=== PATIENT | female | born 1975 | race Caucasian/White ===

== ENCOUNTER → 2023-02-24 | Outpatient (CLI) | payer BC, SELFPAY ==
[2023-02-24 13:05] LABS: Absolute Lymphocyte Count 1.22 X10^3/uL (0.83-4.51); Absolute Neutrophil Count 3.5 X10^3/uL (2.0-7.7); Basophil# 0.02 X10^3/uL; Basophil% 0.4 % (0-1); Eosinophil# 0.05 X10^3/uL; Hematocrit 44.1 % (37-47); Lymphocyte # 1.22 X10^3/ul (0.83-4.51); Lymphocyte % 24.4 % (19-41); Mean Corp Hgb Conc 31.7 g/dL (32-36); Mean Corpuscular Hgb 28.8 pg (27.0-32.0); Mean Corpuscular Volume 90.7 fL (81-99); Mean Platelet Vol. 11.4 fl (6.2-12.0); Monocyte# 0.25 X10^3/uL; NRBC Flagged by Analyzer 0 % (0-5); Neutrophil # 3.46 X10^3/uL (2.7-7.7); Platelet Count 234 K/mm3 (150-450); RBC Distribution Width CV 12.6 % (11.6-14.6); RBC Distribution Width SD 41.8 fl (35.1-43.9); Red Blood Count 4.86 M/mm3 (4.2-5.4)
[2023-02-24 13:18] LABS: Vitamin B12 610 pg/mL (211-911); Vitamin D,25 Hydroxy 50.9 ng/mL
[2023-02-24 13:53] LABS: Ferritin 101 ng/mL (8-252); T4 Free Direct 1.04 ng/dL (0.76-1.46); Thyroid Stim Hormone (TSH) 1.94 uIU/mL (0.358-3.74)
[2023-02-26 14:09] LABS: Anti-Nuclear Antibody Test Negative (.); Vitamin D 1,25-Dihydroxy 86.7 pg/mL (24.8-81.5)
[2023-03-07 01:07] LABS: DHEA Sulfate 86.9 ug/dL (41.2-243.7); Testosterone, % Free 0.57 % (0.50-2.80); Testosterone, Free 0.02 ng/dL (0.10-0.85); Testosterone, Total 4 ng/dL (4-50); Zinc, Plasma or Serum 111 ug/dL (44-115)
== END | disposition home or self-care (01) ==
PROVIDERS: PCP Internal Medicine; Referring Provider Physician Assistant; Visit Provider Physician Assistant
DX: L64.8 Other androgenic alopecia (principal); L20.89 Other atopic dermatitis
CPT/HCPCS: 36415; 82306; 82607; 82627; 82652; 82728; 82746; 84402; 84403; 84439; 84443; 84630; 85025; 86038; 82626

== ENCOUNTER 2023-09-22 03:43 | Inpatient (IN) | payer BC, SELFPAY ==
[2023-09-22] VITALS (14 sets, daily range): BP systolic 103–129; BP diastolic 66–90; PULSE 80–122; RESP 14–18; TEMP 36.3–36.9; O2SAT 95–99; BMI 32.5; BMI 32.3
--- NOTE | 2023-09-22 04:23 | CT_ITS ---
We are attempting to reach an attending provider to discuss findings. An addendum with communication details will be sent when the communication is complete. EXAM: CT ABDOMEN AND PELVIS WITHOUT INTRAVENOUS CONTRAST CLINICAL INDICATION: Kidney Stone TECHNIQUE: Helically acquired images were obtained of the abdomen and pelvis without intravenous contrast. This CT exam was performed using one or more of the following dose reduction techniques: automated exposure control, adjustment of the mA and/or kV according to patient size, and/or use of iterative reconstruction technique. RADIATION DOSE: CTDIvol = 12.22 mGy, DLP = 641.03 mGy-cm COMPARISON: No relevant prior studies available. FINDINGS: LOWER THORAX: Unremarkable. Lung bases are clear. No cardiomegaly. No significant pericardial effusion. ABDOMEN: LIVER: Unremarkable. Homogeneous. GALLBLADDER AND BILE DUCTS: Unremarkable. No calcified gallstones. No gallbladder distention or wall edema. No intra- or extrahepatic biliary ductal dilation. PANCREAS: Unremarkable. No focal cystic mass. SPLEEN: Unremarkable. Normal size without focal cystic or solid mass. ADRENALS: Unremarkable. No nodules. KIDNEYS AND URETERS: Unremarkable. Normal renal size and position. No hydronephrosis. STOMACH AND BOWEL: Unremarkable. No stomach or bowel distention. No focal inflammatory change. PELVIS: APPENDIX: The appendix is dilated up to 1.4 cm. There is an appendicolith in the mid appendix. Moderate inflammatory changes around the mid to distal appendix along the right pelvic sidewall. There are a few tiny gas bubbles above the appendix adjacent to the bowel that are probably within the bowel. BLADDER: Unremarkable. REPRODUCTIVE: Unremarkable as visualized. No mass. ABDOMEN and PELVIS: INTRAPERITONEAL SPACE: Moderate amount of free fluid in the low pelvis. No free air. BONES/JOINTS: Unremarkable. No suspicious lytic or blastic abnormality. SOFT TISSUES: Unremarkable. No discrete abdominal or pelvic wall hernia. VASCULATURE: Unremarkable. Abdominal aorta is non-dilated. LYMPH NODES: Unremarkable. No enlarged lymph nodes. CT/Abdomen/Pelvis without Cont IMPRESSION: 1. Appendicitis with moderate inflammatory changes. Appendicolith in the mid appendix. Perforated appendicitis not excluded. 2. Moderate amount of free fluid in the low pelvis. Electronically Signed: Cleveland Frey MD at 6:19 EDT ,
--- NOTE | 2023-09-22 04:24 | ED.VIS.GI ---
HPI HPI - GI History of Present Illness Chief Complaint: Abd Pain Informant: patient Narrative Narrative: 47-year-old healthy female presenting about 4 AM because of diffuse abdominal pain across periumbilical area that started 2 days ago, occasional nausea and vomiting, and then tonight it seemed to suddenly move from the right mid abdomen to the left lower quadrant sharp and severe. It is not quite as severe now but still at least moderate, and mostly in the left lower quadrant/pelvis. No radiation into the back at this time. Has been somewhat colicky. No urinary symptoms until she got here to the ER to provide a sample in which it looks bloody and burned some. She takes no anticoagulants. No history of any abdominal surgeries. [facility] Medical History IBS (irritable bowel syndrome) Migraine Epilepsy Home Medications ?Medication ?Instructions ?Recorded ?Last Taken ?Type Control 1 tab PO DAILY 02/10/16 Unknown History escitalopram oxalate 10 mg tablet 10 mg PO DAILY 02/10/16 Unknown History hyoscyamine sulfate 0.375 mg 0.375 mg PO BID PRN Not Specified 02/10/16 Unknown History tablet,extended release,12 hr topiramate 50 mg tablet 50 mg PO BID 02/10/16 Unknown History Allergy/AdvReac Type Severity Reaction Status Date / Time No Known Allergies Allergy Verified 09/22/23 03:48 Social History Smoking Status: Never smoker ROS ROS ED Constitutional Constitutional ED: Denies chills or fever(s) Eyes Eyes: Denies change in vision or diplopia ENT ENT ED: Denies rhinorrhea or sore throat Cardiovascular Cardiovascular: Denies chest pain or palpitations Respiratory/Chest Respiratory/Chest: Denies cough or dyspnea Gastrointestinal Gastrointestinal: Reports abdominal pain, nausea and vomiting; Denies diarrhea Genitourinary Genitourinary ED: Reports hematuria; Denies dysuria Musculoskeletal Musculoskeletal: Denies back pain or neck pain Integumentary Denies abscess or rash Neurologic Neurologic: Denies headache(s), paresthesias or weakness Psychiatric Psychiatric: Denies anxiety or suicidal thoughts EXAM Physical Exam Const Vital Signs: 09/22/23 03:44 09/22/23 05:44 Temperature 97.4 F L 97.8 F Temperature Source Temporal Temporal Pulse Rate 122 H 83 Respiratory Rate 18 14 Blood Pressure 123/90 H 117/86 H Blood Pressure Mean 101 96 Pulse Ox 99 98 Oxygen Delivery Method Room Air Room Air Positive well nourished and well developed General Appearance ED: well developed and NAD HEENT Reports moist mucous membranes normocephalic and atraumatic Eyes PERRL and EOMs intact bilaterally Neck full ROM and supple Resp normal respiratory effort and clear to auscultation bilaterally Cardio regular rate, regular rhythm and no murmurs GI non-distended GI Narrative: Tender left lower quadrant, otherwise benign abdomen Auscultation: normoactive bowel sounds Palpation: soft Back/Spine no CVA tenderness General Back: other FROM Extremity normal to inspection General Extremety ED: Negative for edema, pulses abnormal or tenderness General Extremity: Negative for edema or pulses abnormal Neuro oriented x3, CN's II-XII intact bilaterally and no sensory deficits noted Sensorium / Orientation: awake and alert Motor Exam: strength 5/5 throughout Skin no rashes or lesions noted and no wounds MDM MDM MDM Narrative Medical decision making narrative: Unusual pain pattern is patient, initially performed labs and urinalysis, urine appears to be red but the urinalysis shows that it is not blood, it looks like infection. I sent that for culture. It had urobilinogen in it, so I sent liver enzymes off, showing a total bilirubin that is slightly elevated at 1.4, with a total that is slightly high at 0.41, and the rest of her liver enzymes are normal. I reviewed the CT images as well as the report which I agree with, it shows inflammation around the right lower quadrant in the bowel/mesentery and radiologist states this appears to be acute appendicitis along with an appendicolith, and rupture is not excluded due to the amount of inflammation. I reexamined her and discussed this with her. She is tender in the left pelvis now, in addition to the right, but she is more tender McBurney's point than she was initially with some involuntary guarding. There is no rebound tenderness or guarding otherwise. Discussed with Dr. Miller with surgery, will see in emergency department. In the meantime Zosyn given, I sent a urine culture, and patient has been n.p.o. except for a small amount of water she drank when she first got to the ER. Lab Data Attestation: I reviewed the patient's lab results. Labs: Laboratory Results - last 24 hr 09/22/23 09/22/23 04:05 04:12 WBC 7.3 RBC 5.01 Hgb 14.7 Hct 44.6 MCV 89.0 MCH 29.3 MCHC 33.0 RDW Std Deviation 42.5 RDW Coeff of [place] 13.0 Plt Count 193 MPV 10.5 Immature Gran % (Auto) 0.100 Neut % (Auto) 82.8 H Lymph % (Auto) 8.3 L [place] % (Auto) 7.0 Eos % (Auto) 1.1 Baso % (Auto) 0.7 Absolute Neuts (auto) 6.1 Absolute Lymphs (auto) 0.61 L Nucleated RBC % 0 Differential Comment SCANNED Sodium 133 L Potassium 3.9 Chloride 104 Carbon Dioxide 18.0 L Anion Gap 11 BUN 20 H Creatinine 1.27 H Estim Creat Clear Calc 58.91 Est GFR (MDRD) Af Amer 57 L Est GFR (MDRD) Non-Af 47 L BUN/Creatinine Ratio 15.7 Glucose 153 H Calcium 9.8 Total Bilirubin 1.40 H Direct Bilirubin 0.41 H AST 7 L ALT 10 L Alkaline Phosphatase 55 Total Protein 7.4 Albumin 3.4 Globulin 4.0 Urine Color Avril Urine Clarity Clear Urine pH 5.0 Ur Specific [place] 1.025 Urine Protein 30 H Urine Glucose (UA) Normal Urine Ketones 15 H Urine Occult Blood 25 H Urine Nitrite Positive H Urine Bilirubin 3 H Urine Urobilinogen 4 H Ur Leukocyte Esterase 100 H Urine RBC 0 SEEN Urine WBC 0-5 SEEN Ur Squamous Epith Cells 0 SEEN Urine Bacteria 3+ Hyaline Casts 10-25 SEEN Urine Mucus 0 SEEN Radiography Diagnostic Testing: Clinical Impression(s) from Imaging Studies Abdomen/Pelvis CT 09/22/23 04:23 IMPRESSION: 1. Appendicitis with moderate inflammatory changes. Appendicolith in the mid appendix. Perforated appendicitis not excluded. 2. Moderate amount of free fluid in the low pelvis. Electronically Signed: Cleveland Frey MD at 6:19 EDT , ADDENDUM: 09/22/23 0628 IMPRESSION: 1. Appendicitis with moderate inflammatory changes. Appendicolith in the mid appendix. Perforated appendicitis not excluded. 2. Moderate amount of free fluid in the low pelvis. N.B. : The above Results were Read Back by Cleveland Frey MD to Wiliam Batres MD, and understanding confirmed on 09/22/2023 06:21:28 (ET). Electronically Signed: Cleveland Frey MD at 6:19 EDT , Management Discussion w/another healthcare provider: [facility] Administrator (nazia Miller) Critical Care Time Critical Care Time: Yes Critical care time (excluding procedures): 30-74 minutes (32 min), Including time spent:, Discussing w/Patient &/or Family/Vehicle Body Builder, Discussing w/Consultants, Arranging Admission or Transfer and Performing Direct Patient Care at Bedside Discharge Plan Dx/Rx/DC Orders Clinical Impression: Acute appendicitis Disposition Disposition: Acute Care Hospital [facility]
[2023-09-22 04:32] LABS: Mucous, Urine 0 SEEN /hpf (<or=2+); Red Blood Cells-Urine 0 SEEN /hpf (0-5); Squamous Epithelial Cells - UA 0 SEEN /hpf (5-10)
[2023-09-22 04:33] LABS: Absolute Lymphocyte Count 0.61 X10^3/uL (0.83-4.51); Absolute Neutrophil Count 6.1 X10^3/uL (2.0-7.7); Basophil# 0.05 X10^3/uL; Basophil% 0.7 % (0-1); Eosinophil# 0.08 X10^3/uL; Eosinophils% 1.1 % (0-5); Hematocrit 44.6 % (37-47); Hemoglobin 14.7 g/dL (12.0-15.0); Lymphocyte # 0.61 X10^3/ul (0.83-4.51); Lymphocyte % 8.3 % (19-41); Mean Corpuscular Hgb 29.3 pg (27.0-32.0); Mean Platelet Vol. 10.5 fl (6.2-12.0); Monocyte# 0.51 X10^3/uL; NRBC Flagged by Analyzer 0 % (0-5); Neutrophil # 6.05 X10^3/uL (2.7-7.7); Neutrophil % 82.8 % (47-70); POSITIVE MORPHOLOGY YES; Platelet Count 193 K/mm3 (150-450); RBC Distribution Width SD 42.5 fl (35.1-43.9); Red Blood Count 5.01 M/mm3 (4.2-5.4); White Blood Count 7.3 K/mm3 (4.4-11.0)
[2023-09-22 04:33] LABS: Color, Urine Amber (Yellow); Glucose, Dipstick Normal (Normal); Ketone-Dipstick 15 mg/dl (Negative); Leukocyte Esterase-Dipstick 100 /ul (Negative); Nitrite-Dipstick Positive (Negative); Occult Blood-Urine 25 /ul (Negative); Protein-Dipstick 30 mg/dl (Negative); Specific Gravity, Urine 1.025 (1.002-1.030); Urine Clarity Clear (Clear); Urine Urobilinogen 4 mg/dl (Normal)
[2023-09-22 04:35] LABS: Urine Bilirubin Dipstick 3 mg/dL (Negative)
[2023-09-22 04:36] LABS: Differential Indicated SCAN CRITERIA MET
[2023-09-22 04:47] LABS: Anion Gap 11 (5-15); BUN 20 mg/dL (7-18); BUN/Creat Ratio 15.7 RATIO (10-20); Calcium,Total 9.8 mg/dL (8.5-10.1); Chloride 104 mmol/L (98-107); Creatinine, Serum 1.27 mg/dL (0.55-1.02); EST Glomerular Filtration Rate 47 mL/min (>60); Est Glom Filt Rate - Afr Amer 57 mL/min (>60); Estimated Creatinine Clearance 58.91 ml/min; Glucose 153 mg/dL (74-106); Potassium 3.9 mmol/L (3.5-5.1); Sodium Level 133 mmol/L (136-145)
[2023-09-22] MEDS: Ondansetron 4 MG/2 ML Vial IV ×2 (04:48→09:09)
[2023-09-22] MEDS: Ketorolac 30 MG/ML Syringe IV (04:48)
[2023-09-22 04:49] LABS: Bacteria 3+ /hpf (None Seen); Hyaline Cast 10-25 SEEN /lpf (0-5); White Blood Cells 0-5 SEEN /hpf (0-5)
[2023-09-22 05:15] LABS: AST(SGOT) 7 U/L (15-37); Alanine Aminotransfer ALT/SGPT 10 U/L (13-56); Albumin, Serum 3.4 g/dL (3.2-5.0); Alkaline Phosphatase 55 U/L (45-117); Bilirubin, Direct 0.41 mg/dL (0.00-0.30); Protein, Total 7.4 g/dL (6.4-8.2)
[2023-09-22 05:21] LABS: Differential Comment SCANNED
--- NOTE | 2023-09-22 07:01 | NURSING ---
OR THEN MED SURG BORTZ ACUTE APPENDICITIS
[2023-09-22] MEDS: Piperacil/Tazobactam 3.375 GM in 0.9% Normal Saline (50mL MB+) 50 ML IV ×3 (07:28→22:33)
--- NOTE | 2023-09-22 07:38 | HP.PCM_ITS ---
HPI - General General Date of Admission: 09/22/23 Chief Complaint: Abdominal pain with nausea and vomiting HPI Narrative PEGGY FINNEGAN, is a 47 F who presents to [facility] with complaints of abdominal discomfort that began across her periumbilical region 2 days ago and migrated to the right lower quadrant (as well as the left pelvis) over the last 1 day. She shares that this pain is associated with nausea and vomiting. It is because of this latter complaint she is unable to stay for further evaluation in the ER when she first presented and found a long wait to be seen. ER workup is notable for CBC without leukocytosis but left shift. CT imaging of the abdomen pelvis was performed without IV contrast because emergency medicine had a high degree of suspicion for nephrolithiasis given red-tinged urine, however, radiology that this is consistent with acute appendicitis showing a dilated (1.4 cm) appendix with appendicolith and free fluid in the pelvis. The latter they suggested could indicate perforated appendicitis. Patient has no prior surgical history. She does confirm a history of epilepsy with her last seizure activity approximately 20 years ago. [facility] Medical History IBS (irritable bowel syndrome) Migraine Epilepsy Home Medications ?Medication ?Instructions ?Recorded ?Last Taken ?Type Control 1 tab PO DAILY 02/10/16 Unknown History escitalopram oxalate 10 mg tablet 10 mg PO DAILY 02/10/16 Unknown History hyoscyamine sulfate 0.375 mg 0.375 mg PO BID PRN Not Specified 02/10/16 Unknown History tablet,extended release,12 hr topiramate 50 mg tablet 50 mg PO BID 02/10/16 Unknown History Allergy/AdvReac Type Severity Reaction Status Date / Time No Known Allergies Allergy Verified 09/22/23 03:48 Social History Smoking Status: Never smoker Vital Signs Vital Signs Vital Signs: 09/22/23 03:44 09/22/23 05:44 09/22/23 07:02 Temperature 97.4 F L 97.8 F 97.3 F L Temperature Source Temporal Temporal Oral Pulse Rate 122 H 83 82 Respiratory Rate 18 14 16 Blood Pressure 123/90 H 117/86 H 118/77 Blood Pressure Mean 101 96 90 Pulse Ox 99 98 97 Oxygen Delivery Method Room Air Room Air Room Air 09/22/23 07:32 Temperature 97.3 F L Temperature Source Pulse Rate 84 Respiratory Rate 16 Blood Pressure 129/74 H Blood Pressure Mean 92 Pulse Ox 98 Oxygen Delivery Method Weight Weight: 195 lb 5.273 oz Body Mass Index (BMI) 32.5 Physical Exam Const alert, oriented x3 and no apparent distress Constitutional Narrative: Anxious Resp normal respiratory effort GI GI Narrative: No scars, obese, no hernias visible, soft, tender to palpation over McBurney's point. Positive Rovsing sign. Positive psoas sign. Negative obturator sign. Results Lab / Micro Data 09/22/23 04:05 09/22/23 04:05 Labs: Laboratory Results - last 24 hr 09/22/23 04:05: WBC 7.3, RBC 5.01, Hgb 14.7, Hct 44.6, MCV 89.0, MCH 29.3, MCHC 33.0, RDW Std Deviation 42.5, RDW Coeff of [place] 13.0, Plt Count 193, MPV 10.5, Immature Gran % (Auto) 0.100, Neut % (Auto) 82.8 H, Lymph % (Auto) 8.3 L, [place] % (Auto) 7.0, Eos % (Auto) 1.1, Baso % (Auto) 0.7, Absolute Neuts (auto) 6.1, A bsolute Lymphs (auto) 0.61 L, Nucleated RBC % 0, Differential Comment SCANNED, S odium 133 L, Potassium 3.9, Chloride 104, Carbon Dioxide 18.0 L, Anion Gap 11, B UN 20 H, Creatinine 1.27 H, Estim Creat Clear Calc 58.91, Est GFR (MDRD) Af Amer 57 L, Est GFR (MDRD) Non-Af 47 L, BUN/Creatinine Ratio 15.7, Glucose 153 H, Calcium 9.8, Total Bilirubin 1.40 H, Direct Bilirubin 0.41 H, AST 7 L, ALT 10 L, Alkaline Phosphatase 55, Total Protein 7.4, Albumin 3.4, Globulin 4.0 09/22/23 04:12: Urine Color Avril, Urine Clarity Clear, Urine pH 5.0, Ur Specific [place] 1.025, Urine Protein 30 H, Urine Glucose (UA) Normal, Urine Ketones 15 H, Urine Occult Blood 25 H, Urine Nitrite Positive H, Urine Bilirubin 3 H, Urine Urobilinogen 4 H, Ur Leukocyte Esterase 100 H, Urine RBC 0 SEEN, Urine WBC 0-5 SEEN, Ur Squamous Epith Cells 0 SEEN, Urine Bacteria 3+, Hyaline Casts 10-25 SEEN, Urine Mucus 0 SEEN Imaging Radiology Impression Abdomen/Pelvis CT 09/22/23 04:23 IMPRESSION: 1. Appendicitis with moderate inflammatory changes. Appendicolith in the mid appendix. Perforated appendicitis not excluded. 2. Moderate amount of free fluid in the low pelvis. Electronically Signed: Cleveland Frey MD at 6:19 EDT , ADDENDUM: 09/22/23 0628 IMPRESSION: 1. Appendicitis with moderate inflammatory changes. Appendicolith in the mid appendix. Perforated appendicitis not excluded. 2. Moderate amount of free fluid in the low pelvis. N.B. : The above Results were Read Back by Cleveland Frey MD to Wiliam Batres MD, and understanding confirmed on 09/22/2023 06:21:28 (ET). Electronically Signed: Cleveland Frey MD at 6:19 EDT , Assessment & Plan Assessment/Plan (1) Acute appendicitis: PLAN: Patient 47-year-old female who presents with signs and symptoms of acute appendicitis. Indeed, I find her exam consistent with this diagnosis and have recommended surgical appendectomy. I did suggest that cystitis may be treated with antibiotics alone in some areas as well, however, I informed her that even if this were a consideration generally?speaking she would not be a candidate on the basis of her appendicoliths. She expressed understanding I went on to describe the details of the procedure. I also was careful to share with her the radiologic suspicion for possible perforated appendicitis. I detailed to her that this management could include drain placement and a prolonged hospital stay secondary to ileus. I shared that ultimately this information would only be known once we were under with an operation. Once again patient and her expressed understanding. In the interim patient to be admitted to a hospital floor for observation and IV antibiotics have been administered by emergency medicine. Cleveland Miller MD General Surgery Endocrine Surgery Pager: [facility] [address] [place] [address] [address] [place] [id number] Office: [phone] Charges/Coding Visit Charges Inpatient E&M: 20277 Init Hosp L2
[2023-09-22] MEDS: HYDROmorphone 0.5 MG/0.5 ML SYRINGE IV (09:10)
[2023-09-22] MEDS: 0.9% Normal Saline (1000mL) 1,000 ML 125 ML IV ×3 (09:10→23:58)
[2023-09-22 12:50] LABS: Internal QC Validated? YES +Cl - CLEAR BKGD; Pregnancy, Urine Negative Negative
--- NOTE | 2023-09-22 13:00 | APP_PTH ---
PATIENT: PEGGY FINNEGAN LOC: [facility] U#:[id number] AGE/SX: 47/F ROOM: [facility] RE09/24/[address]: Dr. Cleveland Miller MD : 1975 BED: 1 DIS: 09/28/2023 SPEC #: [id number] RECD: 09/22/23 18:19 STATUS: ELIZABETH HASSAN #: [id number] KINGS: 09/22/23 13:[address]: Cleveland Miller DEPT: SURGICAL PATHOLOGY RECD BY: Nancy Young ENTERED: 09/23/23 07:08 SP TYPE: APPENDIX OTHR DR: Dr. Li Beard MD Tissues: Appendix, NOS Procedures: Surgery Specimen Level III HEADER OPERATION: Laparoscopic, appendectomy PRE-OP DIAGNOSIS: Acute appendicitis TISSUE SUBMITTED: Appendix MICROSCOPIC DIAGNOSIS Appendix, appendectomy: Acute necrotizing appendicitis. Acute serositis. AM/mr 09/24/2023 MICROSCOPIC DESCRIPTION Slides are reviewed. GROSS DESCRIPTION Received in fixative is one container labeled with the patient's name and designated appendix. The specimen consists of vermiform dark sumner appendix measuring 9.0 cm in length and 1.0 cm in average diameter. No gross perforations are evident. Serial sections reveal a patent lumen with compacted fecal material. No mass lesion is identified. Push Connector Assembler sections are submitted in one cassette. / AM: 09/23/2023 TC:2 CPT: 83330
--- NOTE | 2023-09-22 14:25 | PCM.OPRPT ---
Report of Operation Date of Procedure: 09/22/23 Pre-Operative Diagnosis: Acute appendicitis Post-Operative Diagnosis: Acute complicated/gangrenous appendicitis Surgery/Procedure Performed:: Laparoscopic appendectomy with drain placement Description of Surgical Findings:: ? Gangrenous/necrotic appendix with gross perforation along the midportion ? Diffuse purulent ascites throughout the peritoneum Surgeon: Cleveland Miller track welder: Elham Velazco Type of Anesthesia: General/Supplemental Anesthesiologist: Tk Schroeder Specimen's removed: Appendix Drains: 15 [place] round Nikhil Estimated Blood Loss (mL): 5 Description of Procedure: After appropriate identification in the preoperative holding area, the patient was brought to the operating room and placed supine on the operating room table. Antibiotics had been preoperatively administered. Patient was then induced with general endotracheal anesthetic. The abdomen was prepped and draped in usual sterile fashion. Formal timeout was conducted to confirm both the patient and the procedure. A supraumbilical incision was made and carried down to the level of the fascia which was sharply opened. After opening the peritoneum in like fashion a finger sweep was made to confirm position, and a balloon trocar was placed and pneumoperitoneum was established to 15 mmHg. Patient was positioned in Trendelenburg with the left side down. 2 additional 5 mm trocars were placed in the left lower quadrant and suprapubic positions. Of note, the pelvis was partially sealed off from the abdomen due to adhesions between the small bowel and the anterior abdominal wall on the patient's peritonitis. There was gross evidence of purulent ascites as well. The appendix was visualized with severe inflammation and evidence of necrosis/gangrene starting in the mid body. Additionally, there was evidence of ion perforation, however, the base of the appendix was spared of any significant inflammation. Using blunt laparoscopic dissection, a window was made in the mesoappendix adjacent to the appendiceal base. The mesoappendix was divided with application of a laparoscopic harmonic. Then the base of the appendix was sealed and amputated with the use of an Endo KRISTY stapler. The appendix was placed in an Endo Catch bag. The staple line was inspected for hemostasis and slight oozing was identified so a titanium clip was placed across this area to achieve hemostasis. The abdomen was copiously irrigated with sterile saline using approximately 2.5 L. Purulent fluid in the right paracolic gutter in the pelvis was suctioned free of the peritoneum. A 15 [place] round Nikhil drain was fed into the peritoneal cavity and withdrawn through the patient's suprapubic port site. After positioning the end of this drain tubing in the right paracolic gutter it was secured at the skin using a 3-0 nylon suture. As hemostasis was confirmed again at the appendiceal base, the specimen within the Endo Catch bag was removed from the umbilical port site. Pneumoperitoneum was then evacuated and the supraumbilical port site fascia was closed with #1 Vicryl in a [id number] fashion. The port sites were infiltrated with 30 mL local anesthetic. The skin of each port site was closed with 4-0 Monocryl in a subcuticular fashion. Steri-Strips and OpSite dressings were applied. Patient tolerated procedure well without any apparent complications. They were awoken from general anesthetic without issue and transferred to post anesthesia care unit for ongoing recovery. Complications None Admit VTE Documentation VTE Mechan Device Prophylaxis: SCD's Procedures Digestive 40xxx-49xxx: [id number] Laparoscopy appendectomy
[2023-09-22] MEDS: Bupivacaine Mpf 0.5% 30 ML VIAL INFILT (14:28)
--- NOTE | 2023-09-22 14:50 | SUR.PHASEI ---
ICE PACK APPLIED TO ABD
[2023-09-22] MEDS: Lactated Ringers 1,000 ML 15 ML IV (15:23)
[2023-09-23 03:18] VITALS: BP 118/82; PULSE 101; RESP 16; TEMP 36.3; O2SAT 98
[2023-09-23] MEDS: Piperacil/Tazobactam 3.375 GM in 0.9% Normal Saline (50mL MB+) 50 ML IV ×3 (06:01→22:23)
[2023-09-23 07:14] LABS: Absolute Lymphocyte Count 0.33 X10^3/uL (0.83-4.51); Absolute Neutrophil Count 5.6 X10^3/uL (2.0-7.7); Basophil# 0.01 X10^3/uL; Basophil% 0.2 % (0-1); Hematocrit 36.5 % (37-47); Lymphocyte # 0.33 X10^3/ul (0.83-4.51); Lymphocyte % 5.3 % (19-41); Mean Corp Hgb Conc 32.9 g/dL (32-36); Mean Corpuscular Hgb 29.6 pg (27.0-32.0); Mean Corpuscular Volume 90.1 fL (81-99); Mean Platelet Vol. 10.4 fl (6.2-12.0); Monocyte# 0.31 X10^3/uL; NRBC Flagged by Analyzer 0 % (0-5); Neutrophil # 5.57 X10^3/uL (2.7-7.7); Neutrophil % 89.2 % (47-70); POSITIVE DIFFERENTIAL YES; POSITIVE MORPHOLOGY YES; Platelet Count 208 K/mm3 (150-450); RBC Distribution Width CV 13.3 % (11.6-14.6); RBC Distribution Width SD 44.3 fl (35.1-43.9); Red Blood Count 4.05 M/mm3 (4.2-5.4); White Blood Count 6.2 K/mm3 (4.4-11.0)
[2023-09-23 07:37] LABS: Differential Indicated SCAN CRITERIA MET
[2023-09-23 07:54] LABS: Anion Gap 9 (5-15); BUN 13 mg/dL (7-18); BUN/Creat Ratio 16.3 RATIO (10-20); Chloride 109 mmol/L (98-107); EST Glomerular Filtration Rate 81 mL/min (>60); Est Glom Filt Rate - Afr Amer 98 mL/min (>60); Estimated Creatinine Clearance 93.25 ml/min; Glucose 137 mg/dL (74-106); Magnesium 2.1 mg/dL (1.6-2.6); Phosphorus 1.5 mg/dL (2.5-4.9); Potassium 3.8 mmol/L (3.5-5.1); Sodium Level 136 mmol/L (136-145)
[2023-09-23] MEDS: Acetaminophen 500 MG Tablet PO (08:27)
--- NOTE | 2023-09-23 08:53 | PN.SURG_ITS ---
Subjective Subjective Patient is a 47 y/o F I am following s/p laparoscopic appendectomy with rupture by Dr. Miller. Patient tolerated the procedure well. Patient notes incisional discomfort. She notes the pain she presented with is much improved. She denies nausea, vomiting, fever. Objective Data Objective Data Vital Signs: Vital Signs Temp Pulse Resp BP Pulse Ox O2 Del Method 97.4 F L 101 H 16 118/82 H 98 Room Air 09/23/23 03:18 09/23/23 03:18 09/23/23 03:18 09/23/23 03:18 09/23/23 03:18 09/23/23 03:21 Oxygen Delivery Method Room Air Weight: 194 lb 3.636 oz Body Mass Index (BMI) 32.3 Intake & Output: Intake and Output for Last 24 Hours 09/21/23 09/22/23 09/23/23 23:59 23:59 23:59 Intake Total 3250.08 / 4150.08 1600 / 1600 Output Total 305 / 305 10 / 10 Balance 2945.08 / 3845.08 1590 / 1590 Lab / Micro Data 09/23/23 06:55 09/23/23 06:55 Labs: Laboratory Results - last 24 hr 09/22/23 04:12: Urine Test Negative 09/23/23 06:55: WBC 6.2, RBC 4.05 L, Hgb 12.0, Hct 36.5 L, MCV 90.1, MCH 29.6, MCHC 32.9, RDW Std Deviation 44.3 H, RDW Coeff of [place] 13.3, Plt Count 208, MPV 10.4, Immature Gran % (Auto) 0.300, Neut % (Auto) 89.2 H, Lymph % (Auto) 5.3 L, [place] % (Auto) 5.0, Eos % (Auto) 0.0, Baso % (Auto) 0.2, Absolute Neuts (auto) 5.6, Absolute Lymphs (auto) 0.33 L, Nucleated RBC % 0, Sodium 136, Potassium 3.8, Chloride 109 H, Carbon Dioxide 18.0 L, Anion Gap 9, BUN 13, Creatinine 0.80, Estim Creat Clear Calc 93.25, Est GFR (MDRD) Af Amer 98, Est GFR (MDRD) Non-Af 81, BUN/Creatinine Ratio 16.3, Glucose 137 H, Calcium 9.0, Phosphorus 1.5 L, Magnesium 2.1 Physical Exam GI GI Narrative: Abdomen- soft, tenderness near the incision sites. HECTOR drain intact with serosanguineous fluid noted. Drain dressing changed. Assessment & Plan Assessment/Plan (1) Acute appendicitis: QUALIFIERS: Acute appendicitis type: with generalized peritonitis Appendicitis gangrene presence: with gangrene Appendicitis perforation presence: with perforation Appendicitis abscess presence: with abscess Q ualified Code(s): K35.211 - Acute appendicitis with generalized peritonitis, with perforation and abscess PLAN: I have evaluated this patient in conjunction with Dr. Miller Continue IV antibiotics Plan to slowly increase patient's diet to full liquids at lunch time Labs reviewed We will continue to monitor this patient Charges/Coding Visit Charges Inpatient E&M: 65163 Subs Hosp L1 (post-op; no charge)
[2023-09-23 09:20] VITALS: BP 119/85; PULSE 96; RESP 16; TEMP 36.7; O2SAT 97
[2023-09-23 09:46] LABS: Differential Comment SCANNED
[2023-09-23] MEDS: Bupivacaine Mpf 0.5% 30 ML VIAL (11:40)
[2023-09-23] MEDS: Ondansetron 4 MG/2 ML Vial IV (12:53)
[2023-09-23] MEDS: 0.9% Normal Saline (250mL Bag) 250 ML 15 ML IV (13:02)
[2023-09-23] MEDS: HYDROmorphone 0.5 MG/0.5 ML SYRINGE IV (13:13)
[2023-09-23 15:00] VITALS: BP 123/87; PULSE 91; RESP 16; TEMP 36.5; O2SAT 98
[2023-09-23] MEDS: Topiramate 50 MG Tablet PO (15:24)
[2023-09-23] MEDS: 0.9% Normal Saline (1000mL) 1,000 ML 125 ML IV ×2 (15:25→22:25)
[2023-09-23] MEDS: Potassium Phosphate 21 MM in 0.9% Normal Saline (250mL Bag) 250 ML 84 MM IV (15:28)
[2023-09-23] MEDS: proCHLORPERazine 10 MG/2 ML Vial 5 MG IV (16:55)
[2023-09-23] MEDS: Metoclopramide 10 MG/2 ML Vial IV (20:35)
[2023-09-23 21:00] VITALS: BP 129/88; PULSE 88; RESP 16; TEMP 36.8; O2SAT 98
[2023-09-24] MEDS: Ondansetron 4 MG/2 ML Vial IV ×2 (01:09→08:09)
[2023-09-24 03:00] VITALS: BP 126/76; PULSE 88; RESP 16; TEMP 36.6; O2SAT 97
[2023-09-24] MEDS: Piperacil/Tazobactam 3.375 GM in 0.9% Normal Saline (50mL MB+) 50 ML IV ×3 (05:49→20:43)
[2023-09-24 06:51] LABS: Absolute Lymphocyte Count 0.48 X10^3/uL (0.83-4.51); Absolute Neutrophil Count 6.4 X10^3/uL (2.0-7.7); Basophil# 0.01 X10^3/uL; Basophil% 0.1 % (0-1); Eosinophil# 0.01 X10^3/uL; Eosinophils% 0.1 % (0-5); Hematocrit 41.5 % (37-47); Hemoglobin 13.3 g/dL (12.0-15.0); Lymphocyte # 0.48 X10^3/ul (0.83-4.51); Lymphocyte % 6.5 % (19-41); Mean Corpuscular Hgb 29.4 pg (27.0-32.0); Mean Corpuscular Volume 91.6 fL (81-99); Mean Platelet Vol. 10.2 fl (6.2-12.0); Monocyte# 0.46 X10^3/uL; Monocyte% 6.2 % (0-10); NRBC Flagged by Analyzer 0 % (0-5); Neutrophil # 6.41 X10^3/uL (2.7-7.7); Neutrophil % 86.8 % (47-70); POSITIVE DIFFERENTIAL YES; Platelet Count 287 K/mm3 (150-450); RBC Distribution Width CV 13.6 % (11.6-14.6); RBC Distribution Width SD 46.5 fl (35.1-43.9); Red Blood Count 4.53 M/mm3 (4.2-5.4); White Blood Count 7.4 K/mm3 (4.4-11.0)
[2023-09-24] MEDS: 0.9% Normal Saline (1000mL) 1,000 ML 125 ML IV ×2 (07:05→14:58)
[2023-09-24 08:51] LABS: Anion Gap 10 (5-15); BUN 17 mg/dL (7-18); BUN/Creat Ratio 29.7 RATIO (10-20); Calcium,Total 9.4 mg/dL (8.5-10.1); Chloride 108 mmol/L (98-107); Creatinine, Serum 0.57 mg/dL (0.55-1.02); EST Glomerular Filtration Rate 119 mL/min (>60); Est Glom Filt Rate - Afr Amer 144 mL/min (>60); Estimated Creatinine Clearance 130.88 ml/min; Glucose 137 mg/dL (74-106); Phosphorus 1.8 mg/dL (2.5-4.9); Potassium 3.7 mmol/L (3.5-5.1); Sodium Level 136 mmol/L (136-145)
[2023-09-24 09:00] VITALS: BP 138/90; PULSE 76; RESP 16; TEMP 36.6; O2SAT 99
--- NOTE | 2023-09-24 12:54 | PCM.PN.SRG ---
Subjective Subjective Patient reports passing a tiny amount of gas this morning. Denies vomiting and says her nausea is a little bit better. Objective Data Objective Data Vital Signs: Vital Signs Temp Pulse Resp BP Pulse Ox O2 Del Method 97.9 F 76 16 138/90 H 99 Room Air 09/24/23 09:00 09/24/23 09:00 09/24/23 09:00 09/24/23 09:00 09/24/23 09:00 09/24/23 09:00 Oxygen Delivery Method Room Air Weight: 194 lb 3.636 oz Body Mass Index (BMI) 32.3 Intake & Output: Intake and Output for Last 24 Hours 09/22/23 09/23/23 09/24/23 23:59 23:59 23:59 Intake Total 3250.08 / 4150.08 4082 / 4142 1160 / 1160 Output Total 305 / 305 50 / 50 30 / 30 Balance 2945.08 / 3845.08 4032 / 4092 1130 / 1130 Lab / Micro Data 09/24/23 05:50 09/24/23 05:50 Labs: Laboratory Results - last 24 hr 09/24/23 05:50: WBC 7.4, RBC 4.53, Hgb 13.3, Hct 41.5, MCV 91.6, MCH 29.4, MCHC 32.0, RDW Std Deviation 46.5 H, RDW Coeff of Quinton 13.6, Plt Count 287, MPV 10.2, Immature Gran % (Auto) 0.300, Neut % (Auto) 86.8 H, Lymph % (Auto) 6.5 L, Price % (Auto) 6.2, Eos % (Auto) 0.1, Baso % (Auto) 0.1, Absolute Neuts (auto) 6.4, Absolute Lymphs (auto) 0.48 L, Nucleated RBC % 0, Sodium 136, Potassium 3.7, Chloride 108 H, Carbon Dioxide 18.0 L, Anion Gap 10, BUN 17, Creatinine 0.57, Estim Creat Clear Calc 130.88, Est GFR (MDRD) Af Amer 144, Est GFR (MDRD) Non-Af 119, BUN/Creatinine Ratio 29.7 H, Glucose 137 H, Calcium 9.4, Phosphorus 1.8 L, Magnesium 2.0 Micro: Microbiology 09/22/23 14:22 Wound Drainage - Other Gram Stain - Final 09/22/23 14:22 Wound Drainage - Other Wound Culture - Final Escherichia coli 09/22/23 14:22 Wound Drainage - Other Anaerobic Culture - Preliminary Checking for anaerobes, further studies to follow. 09/22/23 04:12 Urine, Clean Catch Urine Culture - Final Escherichia coli Physical Exam Const oriented x3 and no apparent distress Resp normal respiratory effort GI soft to palpation Inspection: abdominal distention Palpation: tender Assessment & Plan Assessment/Plan (1) Acute appendicitis: QUALIFIERS: Acute appendicitis type: with generalized peritonitis Appendicitis gangrene presence: with gangrene Appendicitis perforation presence: with perforation Appendicitis abscess presence: with abscess Qualified Code(s): K35.211 - Acute appendicitis with generalized peritonitis, with perforation and abscess PLAN: Patient had laparoscopic appendectomy and is having postoperative ileus. The patient is passing minimal gas and her abdomen is still very distended. I would like to see her abdomen become less distended and her passing more copious gas before starting a diet. HECTOR is still serous. Danyel Harper MD Pager: [facility] [address] [place] [address], [address] [place] [address] Office:
[2023-09-24] MEDS: 0.9% Normal Saline (250mL Bag) 250 ML 15 ML IV (14:21)
[2023-09-24] MEDS: Sodium Phosphate/Na Biphos 30 MMOL in 0.9% Normal Saline (250mL Bag) 250 ML 62.5 MMOL IV (14:21)
[2023-09-24 15:00] VITALS: BP 129/86; PULSE 75; RESP 16; TEMP 36.6; O2SAT 99
--- NOTE | 2023-09-24 16:22 | CASEMGMT ---
RN ESTEPHANIA Face to Face with patient for initial transition planning/care coordination assessment. RN CM introduced self and role at [facility]. Patient walking in room, alert and oriented. Patient willing to participate in assessment and is able to answer all questions appropriately. Care providers, pharmacy, and demographics verified. PCP: Chirag Specialists: none Preferred Pharmacy: [facility] Insurance: [employer] Prescription Benefit: yes Living Will/HPOA: none LNOK: Living Arrangements: Patient lives in a 2 story home with . Patient is independent and able to ambulate stairs. Transportation: self, DME/HHC: Patient has cane at home. No previous HHC or SNF. Patient wishes to discharge home, denies need for home health at this time. Patient states he has no further needs or concerns at this time. CM to follow for discharge planning needs that may arise. Disposition Plan: Patient to discharge home with family support and follow-up plans in place. Fatoumata BRITO, RN, CM
[2023-09-24] MEDS: Topiramate 50 MG Tablet PO (20:43)
[2023-09-24 20:46] VITALS: BP 134/87; PULSE 75; RESP 16; TEMP 36.6; O2SAT 98
[2023-09-25] MEDS: 0.9% Normal Saline (1000mL) 1,000 ML 125 ML IV ×2 (00:01→05:45)
[2023-09-25 03:00] VITALS: BP 142/81; PULSE 78; RESP 15; TEMP 36.6; O2SAT 98
[2023-09-25] MEDS: Ondansetron 4 MG/2 ML Vial IV (03:17)
--- NOTE | 2023-09-25 03:45 | RAD_ITS ---
EXAM: XR ABDOMEN, 1 VIEW CLINICAL INDICATION: ileus TECHNIQUE: Frontal supine view of the abdomen/pelvis. COMPARISON: CT scan of the abdomen and pelvis 09/22/2023. FINDINGS: LOWER THORAX: No acute pathology. GASTROINTESTINAL TRACT: Multiple dilated small bowel loops without stacking of the segments. ORGANS: Unremarkable as visualized. No organomegaly. No abnormal calcifications. BONES/JOINTS: No acute pathology. SOFT TISSUES: No acute pathology. TUBES, LINES AND DEVICES: Rg-Rosales drain in the region of the right colic gutter. RAD/Abdomen Single View (Portable) IMPRESSION: 1. Multiple dilated small bowel loops without stacking of the segments. Findings consistent with ileus. Obstruction not completely excluded. 2. Rg-Rosales drain in the region of the right colic gutter. Electronically Signed: Cleveland Frey MD at 4:07 EDT ,
[2023-09-25] MEDS: Piperacil/Tazobactam 3.375 GM in 0.9% Normal Saline (50mL MB+) 50 ML IV ×3 (05:46→21:05)
[2023-09-25 08:52] VITALS: BP 115/76; PULSE 75; RESP 18; TEMP 36.1; O2SAT 99
[2023-09-25] MEDS: Topiramate 50 MG Tablet PO ×2 (08:54→21:08)
[2023-09-25] MEDS: Escitalopram Oxalate 10 MG Tablet PO (08:54)
--- NOTE | 2023-09-25 09:01 | PCM.PN.SRG ---
Subjective Subjective Yesterday morning the patient said she started passing some flatus. Yesterday afternoon she was passing more significant flatus and her abdomen was less distended and she was feeling hungry. Started clear liquid diet. Last night she had copious green vomiting. This morning she is still saying she is not passing much gas. I ordered a KUB that showed distended small bowel. HECTOR still serous. I moved her back to n.p.o. and we will wait another day. Passing gas and distended tomorrow I will order a CT with oral contrast. Danyel Harper MD Pager: [facility] [address] [place] [address], [address] [place] [address] Office: Objective Data Objective Data Vital Signs: Vital Signs Temp Pulse Resp BP Pulse Ox O2 Del Method 97.0 F L 75 18 115/76 99 Room Air 09/25/23 08:52 09/25/23 08:52 09/25/23 08:52 09/25/23 08:52 09/25/23 08:52 09/25/23 08:52 Oxygen Delivery Method Room Air Weight: 194 lb 3.636 oz Body Mass Index (BMI) 32.3 Intake & Output: Intake and Output for Last 24 Hours 09/23/23 09/24/23 09/25/23 23:59 23:59 23:59 Intake Total 4082 / 4142 3705.42 / 3705.42 766.67 / 766.67 Output Total 50 / 50 230 / 230 Balance 4032 / 4092 3475.42 / 3475.42 766.67 / 766.67 Lab / Micro Data 09/24/23 05:50 09/24/23 05:50 Micro: Microbiology 09/22/23 14:22 Wound Drainage - Other Gram Stain - Final 09/22/23 14:22 Wound Drainage - Other Wound Culture - Final Escherichia coli 09/22/23 14:22 Wound Drainage - Other Anaerobic Culture - Preliminary Checking for anaerobes, further studies to follow. 09/22/23 04:12 Urine, Clean Catch Urine Culture - Final Escherichia coli Radiography Diagnostic Testing: Radiology Impression KUB X-Ray 09/25/23 03:45 IMPRESSION: 1. Multiple dilated small bowel loops without stacking of the segments. Findings consistent with ileus. Obstruction not completely excluded. 2. Rg-Rosales drain in the region of the right colic gutter. Electronically Signed: Cleveland Frey MD at 4:07 EDT ,
[2023-09-25] MEDS: 0.9% Normal Saline (1000mL) 1,000 ML 80 ML IV (13:45)
[2023-09-25 15:00] VITALS: BP 132/84; PULSE 79; RESP 16; TEMP 36.2; O2SAT 97
[2023-09-25] MEDS: Bisacodyl 10 MG Suppository RC (15:25)
[2023-09-25 21:02] VITALS: BP 122/72; PULSE 83; RESP 22; TEMP 36.8; O2SAT 100
[2023-09-26] MEDS: 0.9% Normal Saline (1000mL) 1,000 ML 80 ML IV (02:13)
[2023-09-26 03:14] VITALS: BP 135/86; PULSE 77; RESP 16; TEMP 37; O2SAT 99
[2023-09-26] MEDS: Piperacil/Tazobactam 3.375 GM in 0.9% Normal Saline (50mL MB+) 50 ML IV (05:01)
[2023-09-26 06:50] LABS: Absolute Lymphocyte Count 1.06 X10^3/uL (0.83-4.51); Absolute Neutrophil Count 4.4 X10^3/uL (2.0-7.7); Basophil# 0.03 X10^3/uL; Basophil% 0.5 % (0-1); Eosinophil# 0.08 X10^3/uL; Eosinophils% 1.3 % (0-5); Hematocrit 34.7 % (37-47); Hemoglobin 10.9 g/dL (12.0-15.0); Lymphocyte # 1.06 X10^3/ul (0.83-4.51); Mean Corp Hgb Conc 31.4 g/dL (32-36); Mean Corpuscular Hgb 28.8 pg (27.0-32.0); Mean Corpuscular Volume 91.8 fL (81-99); Mean Platelet Vol. 9.6 fl (6.2-12.0); Monocyte# 0.55 X10^3/uL; Monocyte% 8.8 % (0-10); NRBC Flagged by Analyzer 0 % (0-5); Neutrophil # 4.41 X10^3/uL (2.7-7.7); Neutrophil % 70.8 % (47-70); POSITIVE MORPHOLOGY YES; Platelet Count 246 K/mm3 (150-450); RBC Distribution Width CV 13.7 % (11.6-14.6); RBC Distribution Width SD 46.5 fl (35.1-43.9); Red Blood Count 3.78 M/mm3 (4.2-5.4); White Blood Count 6.2 K/mm3 (4.4-11.0)
[2023-09-26 06:55] LABS: Differential Indicated SCAN CRITERIA MET
[2023-09-26 07:11] LABS: Anion Gap 13 (5-15); BUN 9 mg/dL (7-18); BUN/Creat Ratio 19.8 RATIO (10-20); Calcium,Total 7.9 mg/dL (8.5-10.1); Chloride 108 mmol/L (98-107); Creatinine, Serum 0.46 mg/dL (0.55-1.02); EST Glomerular Filtration Rate 155 mL/min (>60); Est Glom Filt Rate - Afr Amer 187 mL/min (>60); Estimated Creatinine Clearance 162.17 ml/min; Glucose 86 mg/dL (74-106); Phosphorus 1.8 mg/dL (2.5-4.9); Potassium 3.5 mmol/L (3.5-5.1); Sodium Level 139 mmol/L (136-145)
--- NOTE | 2023-09-26 07:48 | CT_ITS ---
EXAM: CT ABDOMEN AND PELVIS WITH INTRAVENOUS CONTRAST CLINICAL INDICATION: ileus post appy -- PO and IV contrast, wet read to Dr. Harper please TECHNIQUE: Helically acquired images were obtained of the abdomen and pelvis with intravenous contrast. This CT exam was performed using one or more of the following dose reduction techniques: automated exposure control, adjustment of the mA and/or kV according to patient size, and/or use of iterative reconstruction technique. CONTRAST: Oral and amp; IV Gastrografin and amp; 100mL Isovue-370 COMPARISON: CT Abdomen Pelvis dated 09/22/2023 FINDINGS: LOWER THORAX: Interval development of minimal bilateral pleural effusions and mild bibasilar atelectasis. ABDOMEN: LIVER: 8 mm cyst within hepatic segment 3. PANCREAS: Normal. No focal cystic or solid mass. SPLEEN: Normal. Normal size without focal cystic or solid mass. ADRENALS: Normal. No nodules. KIDNEYS AND URETERS: Normal. Normal renal size and position. No hydronephrosis. STOMACH AND BOWEL: Distention of multiple loops of small bowel and right side of the colon suggestive of postoperative ileus. PELVIS: APPENDIX: Interval appendectomy with surgical drain extending along the right lateral colonic gutter. BLADDER: Normal. REPRODUCTIVE: Unremarkable as visualized. No mass. ABDOMEN and PELVIS: INTRAPERITONEAL SPACE: Small amount of residual fluid noted within the dependent portion of the pelvis without discrete evidence of abscess formation. No free air. BONES/JOINTS: No suspicious lytic or blastic abnormality. SOFT TISSUES: Normal. No discrete abdominal or pelvic wall hernia. VASCULATURE: Normal. Abdominal aorta is non-dilated. LYMPH NODES: Normal. No enlarged lymph nodes. CT/Abdomen/Pelvis WITH Contrast IMPRESSION: 1. Interval appendectomy. 2. Bowel distention suggestive of ileus. 3. Residual pelvic fluid without discrete evidence of abscess formation. Electronically Signed: Erick Stewart MD at 11:12 EDT ,
--- NOTE | 2023-09-26 07:50 | PN.SURG_ITS ---
Subjective Subjective Patient is still reporting that she is bloated. She says that she had a sip of water with one of her medications last night and it caused a lot of belching. She said her abdomen is less painful but still having pain. She says she is passing gas when she is in the bathroom urinating. She says she is passing a lot of urine. Objective Data Objective Data Vital Signs: Vital Signs Temp Pulse Resp BP Pulse Ox O2 Del Method 98.6 F 77 16 135/86 H 99 Room Air 09/26/23 03:14 09/26/23 03:14 09/26/23 03:14 09/26/23 03:14 09/26/23 03:14 09/26/23 03:22 Oxygen Delivery Method Room Air Weight: 194 lb 3.636 oz Body Mass Index (BMI) 32.3 Intake & Output: Intake and Output for Last 24 Hours 09/24/23 09/25/23 09/26/23 23:59 23:59 23:59 Intake Total 3705.42 / 3705.42 2396.67 / 2396.67 1050 / 1050 Output Total 230 / 230 150 / 150 40 / 40 Balance 3475.42 / 3475.42 2246.67 / 2246.67 1010 / 1010 Lab / Micro Data 09/26/23 06:10 09/26/23 06:10 Labs: Laboratory Results - last 24 hr 09/26/23 06:10: WBC 6.2, RBC 3.78 L, Hgb 10.9 L, Hct 34.7 L, MCV 91.8, MCH 28.8, MCHC 31.4 L, RDW Std Deviation 46.5 H, RDW Coeff of Quinton 13.7, Plt Count 246, MPV 9.6, Immature Gran % (Auto) 1.600 H, Neut % (Auto) 70.8 H, Lymph % (Auto) 17.0 L , [place] % (Auto) 8.8, Eos % (Auto) 1.3, Baso % (Auto) 0.5, Absolute Neuts (auto) 4.4, Absolute Lymphs (auto) 1.06, Nucleated RBC % 0, Sodium 139, Potassium 3.5, Chloride 108 H, Carbon Dioxide 18.0 L, Anion Gap 13, BUN 9, Creatinine 0.46 L, Estim Creat Clear Calc 162.17, Est GFR (MDRD) Af Amer 187, Est GFR (MDRD) Non-Af 155, BUN/Creatinine Ratio 19.8, Glucose 86, Calcium 7.9 L, Phosphorus 1.8 L Micro: Microbiology 09/22/23 14:22 Wound Drainage - Other Gram Stain - Final 09/22/23 14:22 Wound Drainage - Other Wound Culture - Final Escherichia coli 09/22/23 14:22 Wound Drainage - Other Anaerobic Culture - Preliminary Checking for anaerobes, further studies to follow. 09/22/23 04:12 Urine, Clean Catch Urine Culture - Final Escherichia coli Physical Exam Const oriented x3 and no apparent distress Resp clear to auscultation bilaterally GI soft to palpation Inspection: abdominal distention Assessment & Plan Assessment/Plan (1) Acute appendicitis: QUALIFIERS: Acute appendicitis type: with generalized peritonitis Appendicitis gangrene presence: with gangrene Appendicitis perforation presence: with perforation Appendicitis abscess presence: with abscess Q ualified Code(s): K35.211 - Acute appendicitis with generalized peritonitis, with perforation and abscess PLAN: The patient reports she is passing some gas but she still seems fairly distended. At this point I would like to order a CT scan with oral and IV contrast to evaluate ileus versus obstruction. Stop IV antibiotics and IV fluids. Continue pain medications. Danyel Harper MD Pager: [facility] [address] [place] [address], [address] [place] [address] Office:
[2023-09-26 09:20] VITALS: BP 127/71; PULSE 71; RESP 16; TEMP 36.8; O2SAT 100
[2023-09-26 09:46] LABS: Differential Comment SCANNED; Reactive Lymphocyte 1+
[2023-09-26] MEDS: 0.9% Saline Lock 10 ML Syringe IV (10:26)
[2023-09-26] MEDS: Topiramate 50 MG Tablet PO ×2 (10:26→21:10)
[2023-09-26] MEDS: Escitalopram Oxalate 10 MG Tablet PO (10:26)
[2023-09-26 14:29] VITALS: BP 144/83; PULSE 73; RESP 16; TEMP 36.9; O2SAT 98
[2023-09-26] MEDS: Calcium Carbonate 500 MG Tablet 1000 MG PO (15:09)
[2023-09-26] MEDS: Pantoprazole Sodium 40 MG in 0.9% Normal Saline (100mL MB+) 100 ML 330 MG IV (15:30)
[2023-09-26] MEDS: Acetaminophen 500 MG Tablet PO (18:13)
[2023-09-26] MEDS: Potassium Phosphate 30 MM in 0.9% Normal Saline (250mL Bag) 250 ML 42 MM IV (21:05)
[2023-09-26 21:07] VITALS: BP 130/75; PULSE 73; RESP 17; TEMP 36.8; O2SAT 97
[2023-09-27 04:01] VITALS: BP 128/87; PULSE 75; RESP 17; TEMP 36.2; O2SAT 97
--- NOTE | 2023-09-27 07:04 | PN.SURG_ITS ---
Subjective Subjective Patient reports she is feeling much better today. She is less bloated and she is passing gas. She is not having any reflux like she was having yesterday and the belching is stopped. Objective Data Objective Data Vital Signs: Vital Signs Temp Pulse Resp BP Pulse Ox O2 Del Method 97.2 F L 75 17 128/87 H 97 Room Air 09/27/23 04:01 09/27/23 04:01 09/27/23 04:01 09/27/23 04:01 09/27/23 04:01 09/27/23 04:09 Oxygen Delivery Method Room Air Weight: 194 lb 3.636 oz Body Mass Index (BMI) 32.3 Intake & Output: Intake and Output for Last 24 Hours 09/25/23 09/26/23 09/27/23 23:59 23:59 23:59 Intake Total 2396.67 / 2396.67 205.00 / 2058.00 380 / 380 Output Total 150 / 150 80 / 80 11 / 11 Balance 2246.67 / 2246.67 1979.00 / 1978. 369 / 369 Lab / Micro Data 09/26/23 06:10 09/26/23 06:10 Labs: Laboratory Results - last 24 hr 09/26/23 06:10: Differential Comment SCANNED, Reactive Lymphocytes 1+, Sodium 139, Potassium 3.5, Chloride 108 H, Carbon Dioxide 18.0 L, Anion Gap 13, BUN 9, Creatinine 0.46 L, Estim Creat Clear Calc 162.17, Est GFR (MDRD) Af Amer 187, Est GFR (MDRD) Non-Af 155, BUN/Creatinine Ratio 19.8, Glucose 86, Calcium 7.9 L, Phosphorus 1.8 L Micro: Microbiology 09/22/23 14:22 Wound Drainage - Other Gram Stain - Final 09/22/23 14:22 Wound Drainage - Other Wound Culture - Final Escherichia coli 09/22/23 14:22 Wound Drainage - Other Anaerobic Culture - Final Bacteroides fragilis Porphyromonas species Clostridium group 09/22/23 04:12 Urine, Clean Catch Urine Culture - Final Escherichia coli Radiography Diagnostic Testing: Radiology Impression Abdomen/Pelvis CT 09/26/23 07:48 IMPRESSION: 1. Interval appendectomy. 2. Bowel distention suggestive of ileus. 3. Residual pelvic fluid without discrete evidence of abscess formation. Electronically Signed: Erick Stewart MD at 11:12 EDT , Physical Exam Const oriented x3 and no apparent distress Resp normal respiratory effort GI soft to palpation and non-tender Assessment & Plan Assessment/Plan (1) Acute appendicitis: QUALIFIERS: Acute appendicitis type: with generalized peritonitis Appendicitis gangrene presence: with gangrene Appendicitis perforation presence: with perforation Appendicitis abscess presence: with abscess Q ualified Code(s): K35.211 - Acute appendicitis with generalized peritonitis, with perforation and abscess PLAN: The patient seems to be doing better and she is passing flatus. She says she is much less distended and she does feel softer. I will try clears again today. I will go slow and stay on clears all day today and if she tolerates clears today I will advance her diet to regular remove her drain tomorrow and discharge her tomorrow. Danyel Harper MD Pager: [facility] [address] [place] [address], [address] [place] [address] Office:
[2023-09-27 07:51] LABS: Absolute Lymphocyte Count 1.42 X10^3/uL (0.83-4.51); Absolute Neutrophil Count 4.6 X10^3/uL (2.0-7.7); Basophil# 0.09 X10^3/uL; Basophil% 1.3 % (0-1); Eosinophil# 0.12 X10^3/uL; Eosinophils% 1.7 % (0-5); Hematocrit 38.2 % (37-47); Hemoglobin 12.2 g/dL (12.0-15.0); Lymphocyte # 1.42 X10^3/ul (0.83-4.51); Lymphocyte % 19.9 % (19-41); Mean Corp Hgb Conc 31.9 g/dL (32-36); Mean Corpuscular Hgb 28.6 pg (27.0-32.0); Mean Corpuscular Volume 89.7 fL (81-99); Mean Platelet Vol. 9.5 fl (6.2-12.0); Monocyte# 0.62 X10^3/uL; Monocyte% 8.7 % (0-10); NRBC Flagged by Analyzer 0 % (0-5); Neutrophil # 4.59 X10^3/uL (2.7-7.7); Neutrophil % 64.5 % (47-70); Platelet Count 339 K/mm3 (150-450); RBC Distribution Width CV 13.2 % (11.6-14.6); Red Blood Count 4.26 M/mm3 (4.2-5.4); White Blood Count 7.1 K/mm3 (4.4-11.0)
[2023-09-27 08:22] LABS: Anion Gap 12 (5-15); BUN 7 mg/dL (7-18); BUN/Creat Ratio 16.4 RATIO (10-20); Calcium,Total 9.2 mg/dL (8.5-10.1); Chloride 106 mmol/L (98-107); Creatinine, Serum 0.43 mg/dL (0.55-1.02); EST Glomerular Filtration Rate 167 mL/min (>60); Est Glom Filt Rate - Afr Amer 202 mL/min (>60); Estimated Creatinine Clearance 173.49 ml/min; Glucose 78 mg/dL (74-106); Phosphorus 3.2 mg/dL (2.5-4.9); Potassium 3.3 mmol/L (3.5-5.1); Sodium Level 135 mmol/L (136-145)
[2023-09-27 09:49] VITALS: BP 138/86; PULSE 72; RESP 16; TEMP 36.2; O2SAT 99
[2023-09-27] MEDS: Escitalopram Oxalate 10 MG Tablet PO (09:52)
[2023-09-27] MEDS: Pantoprazole Sodium 40 MG in 0.9% Normal Saline (100mL MB+) 100 ML 330 MG IV (09:52)
[2023-09-27] MEDS: Topiramate 50 MG Tablet PO ×2 (09:52→22:06)
[2023-09-27] MEDS: Acetaminophen 500 MG Tablet PO (09:52)
[2023-09-27 14:04] VITALS: BP 137/79; PULSE 87; RESP 16; TEMP 36.2; O2SAT 98
[2023-09-28] VITALS: BP 140/88; PULSE 86; RESP 16; TEMP 36.3; O2SAT 98
[2023-09-28 03:06] VITALS: BP 130/86; PULSE 83; RESP 16; TEMP 36.3; O2SAT 97
[2023-09-28] MEDS: 0.9% Normal Saline (500mL Bag) 500 ML 15 ML IV (03:14)
[2023-09-28] MEDS: 0.9% Normal Saline (1000mL) 1,000 ML 15 ML IV (05:04)
--- NOTE | 2023-09-28 08:08 | PCM.PN.SRG ---
Subjective Subjective Patient reports that she is tolerating clear liquids no nausea or vomiting. Pain is minimal. She is having bowel movements. Objective Data Objective Data Vital Signs: Vital Signs Temp Pulse Resp BP Pulse Ox O2 Del Method 97.4 F L 83 16 130/86 H 97 Room Air 09/28/23 03:06 09/28/23 03:06 09/28/23 03:06 09/28/23 03:06 09/28/23 03:06 09/28/23 03:25 Oxygen Delivery Method Room Air Weight: 194 lb 3.636 oz Body Mass Index (BMI) 32.3 Intake & Output: Intake and Output for Last 24 Hours 09/26/23 09/27/23 09/28/23 23:59 23:59 23:59 Intake Total 2058.00 / 2058.00 490 / 970 836.75 / 836.75 Output Total 80 / 80 91 / 91 0 / 0 Balance 1978.00 / 1978. 399 / 879 836.75 / 836.75 Lab / Micro Data 09/27/23 07:00 09/27/23 07:00 Labs: Laboratory Results - last 24 hr 09/27/23 07:00: Sodium 135 L, Potassium 3.3 L, Chloride 106, Carbon Dioxide 17.0 L, Anion Gap 12, BUN 7, Creatinine 0.43 L, Estim Creat Clear Calc 173.49, Est GFR (MDRD) Af Amer 202, Est GFR (MDRD) Non-Af 167, BUN/Creatinine Ratio 16.4, Glucose 78, Calcium 9.2, Phosphorus 3.2 Micro: Microbiology 09/22/23 14:22 Wound Drainage - Other Gram Stain - Final 09/22/23 14:22 Wound Drainage - Other Wound Culture - Final Escherichia coli 09/22/23 14:22 Wound Drainage - Other Anaerobic Culture - Final Bacteroides fragilis Porphyromonas species Clostridium group 09/22/23 04:12 Urine, Clean Catch Urine Culture - Final Escherichia coli Physical Exam Const oriented x3 and no apparent distress Resp normal respiratory effort GI soft to palpation and non-tender Assessment & Plan Assessment/Plan (1) Acute appendicitis: QUALIFIERS: Acute appendicitis type: with generalized peritonitis Appendicitis gangrene presence: with gangrene Appendicitis perforation presence: with perforation Appendicitis abscess presence: with abscess Qualified Code(s): K35.211 - Acute appendicitis with generalized peritonitis, with perforation and abscess PLAN: Patient had postoperative ileus. She seems to be tolerating clears well now and having bowel function. I will advance her to regular diet. If she tolerates regular diet today I will remove the drain and discharge her home. Danyel Harper MD Pager: [facility] [address] [place] [address] [address] [place] [address] Office:
[2023-09-28 09:06] VITALS: BP 112/75; PULSE 97; RESP 16; TEMP 36.1; O2SAT 99
[2023-09-28] MEDS: Topiramate 50 MG Tablet PO (10:13)
[2023-09-28] MEDS: 0.9% Saline Lock 10 ML Syringe IV (10:14)
[2023-09-28] MEDS: Pantoprazole Sodium 40 MG in 0.9% Normal Saline (100mL MB+) 100 ML 330 MG IV (10:14)
[2023-09-28] MEDS: Escitalopram Oxalate 10 MG Tablet PO (10:14)
--- NOTE | 2023-09-28 12:50 | DS.PCM_ITS ---
Providers Date of Admission: 09/24/23 Primary Care Physician: Dr. Li Beard MD Reason For Visit: ACUTE APPENDICITIS Diagnosis Discharge Diagnosis (1) Acute appendicitis: Status: Acute Code(s): K35.80 - Unspecified acute appendicitis Qualifiers: Acute appendicitis type: with generalized peritonitis Appendicitis abscess presence: with abscess Appendicitis gangrene presence: with gangrene A ppendicitis perforation presence: with perforation Qualified Code(s): K35.211 - Acute appendicitis with generalized peritonitis, with perforation and abscess Plan: I have evaluated this patient in conjunction with Dr. Miller Continue IV antibiotics Plan to slowly increase patient's diet to full liquids at lunch time Labs reviewed We will continue to monitor this patient Medications at Discharge Home Medications Control 1 tab PO DAILY 02/10/16 escitalopram oxalate 10 mg tablet 10 mg PO DAILY 02/10/16 hyoscyamine sulfate 0.375 mg tablet,extended release,12 hr 0.375 mg PO BID PRN Not Specified 02/10/16 topiramate 50 mg tablet 50 mg PO BID 02/10/16 acetaminophen 500 mg tablet 500 mg PO Q6H PRN PRN Pain Score 1-10 #0 tabs 09/28/23 Hospital Course Operations appendectomy Summary of Care Provided Minutes Spent on Discharge: 35 Hospital Course: Patient is a 47 y/o F who presented with 2 day history of abdominal pain. CT scan of the ab/pel was obtained noting acute appendicitis. Dr. Miller performed a laparoscopic appendectomy on 09/22/23. Patient tolerated the procedure well. Findings included gangrenous/necrotic appendix with gross perforation along the midportion, diffuse purulent ascites throughout the peritoneum. Patient had developed an ileus during her stay. She was provided bowel rest and multiple days of IV Zosyn. Upon discharge, patient is passing flatus and having bowel movements. She is tolerating a regular diet without nausea, vomiting. She denies any abdominal pain or discomfort. She denies any discomfort at the incision sites. Her HECTOR drain was removed on the day of discharge without any issues. Discharge instructions were reviewed and she is to follow-up with Dr. Miller in office in 1 week from discharge. Physical Exam GI GI Narrative: Abdomen- incisions c/d/i. Op-sites removed. Steri-strips left in place. HECTOR drain site was covered with gauze dressing. Weight / BMI Weight Weight: 194 lb 3.636 oz Body Mass Index (BMI) 32.3 ABG / Lab / Microbiology Data 09/27/23 07:00 09/27/23 07:00 Microbiology: Microbiology 09/22/23 14:22 Wound Drainage - Other Gram Stain - Final 09/22/23 14:22 Wound Drainage - Other Wound Culture - Final Escherichia coli 09/22/23 14:22 Wound Drainage - Other Anaerobic Culture - Final Bacteroides fragilis Porphyromonas species Clostridium group 09/22/23 04:12 Urine, Clean Catch Urine Culture - Final Escherichia coli D/C Instructions Discharge Diet: Light diet - advance as tolerated Discharge Activity: May Drive and May Not Shower (until drain site is completely closed) Return to work on: 10/01/23 Lifting Restricted to (Lbs): 10 Lifting Restrictions: No lifting greater than 10 pounds for 1 week Call your doctor if your incision/area has: Continuous Slow Oozing, Sudden Increased Bleeding, Increased Pain/ Swelling, Increased Redness, Foul Smelling Discharge and Swelling at the incision site Call your doctor if you observe: Fever of 101 or Higher Suture Line Care: Avoid Pulling/Pushing and Avoid Pinching/Bending Change Dressing in: 1 day Please Follow Up With: Cleveland Millre MD When: Please contact our office at [phone] to schedule a 1 week follow-up Meaningful Use Info Meaningful Use Meaningful Use Diagnoses (Choose all that apply): None applicable Ischemic Stroke Statin Dosing Therapy Reference: STATIN DOSE THERAPY REFERENCE: * Patients > 75 years receive moderate or high dose statin therapy. * Patients 75 years or YOUNGER should receive HIGH intensity statin dose unless contraindicated. You will be required to document reason for non-treatment if statin daily dose does not meet guidelines. HIGH DOSE STATIN THERAPY DAILY Atorvastatin > than or = to 40 mg Rosuvastatin > than or = to 20 mg Amlodipine + Atorvastatin > than or = to 2.5/40 mg Ezetimibe + Simvastatin 10/80 mg Simvastatin 80mg Discharge Plan Admission Admit Date/Time: 09/24/23 13:13 Primary Reason for Your Visit: Acute appendicitis Attending Provider: Cleveland Miller Primary Care Provider: Li Beard Instructions Forms: Work Excuse, Work / School Excuse Additional Instructions / Restrictions: Appendectomy Diet ? Start light with soups and soft bland foods. You may advance diet as tolerated. Activity ? You may drive in 3-5 days but not while taking narcotic pain medication. ? I encourage walking. You may go up steps, one at a time. ? Do not swim or use hot tubs for 2 weeks. ? For comfort, you may use warm compresses or ice as needed for 15-20 minutes at a time. Lifting ? You may lift up to 10 pounds for the first 1 week. Dressings/Incision ? You may shower ? Do NOT tub bathe for 1 week ? When plastic dressings are removed, you will find steri-strips. It is okay to continue showering with them in place, pat them dry. ? You will need to wait until drain site is completely closed prior to showering. Change the drain dressing daily until no further drainage is noted. Medications ? Anesthesia used during surgery and pain medications may cause constipation. I recommend initiating on the day of surgery a fiber supplement like, Metamucil, Citrucel, FiberCon, Benefiber, or a generic form of these medications. 1 heaping tablespoon in water daily. You may continue to utilize any bowel regimen or oral laxatives that you routinely take. ? As long as you are not intolerant to Tylenol, acetaminophen, ibuprofen, Motrin, Advil, Aleve, or similar medications, I would recommend transitioning to these [id number] medicines as soon as possible instead of continued use of narcotic pain medication. Follow up ? You should call [facility] soon after surgery, at [phone] option 1 to make a follow up appointment for 7-10 days after your surgery. Discharge Orders/Prescriptions Prescriptions: New acetaminophen 500 mg Tablet 500 mg PO Q6H PRN PRN (Reason: Pain Score 1-10) Qty: 0 0RF Continued hyoscyamine sulfate 0.375 MG tablet extended release 12 hr 0.375 mg PO BID PRN (Reason: Not Specified) Patient Comments: IBS escitalopram oxalate 10 MG tablet 10 mg PO DAILY topiramate 50 MG tablet 50 mg PO BID Patient Comments: SEIZURES Control 1 TAB 1 tab PO DAILY Referrals / Follow Up: Li Beard MD [Primary Care Provider] - Cindy Kendrick MD [Non-Staff] - Cleveland Miller MD [Med Staff - Active Staff] - (Please call our office to schedule a 1 week follow-up) Disposition Disposition (needs filled in before D/C Order can be placed): Home, Self Care Charges/Coding Visit Charges Inpatient E&M: 15342 Disch Hosp >30min (no charge; post-op)
--- NOTE | 2023-09-28 13:55 | CASEMGMT ---
Patient has order for discharge. RN CM in to discuss needs at discharge. Patient denies needs or help at discharge. Patient had no further questions or concerns.
--- NOTE | 2023-09-28 14:02 | PHA.DC.MR.R ---
[facility] [place] [facility] Reconciliation Pharmacy Service has performed discharge medication reconciliation for this patient. The patient's discharge medication list was reviewed for discrepancies and discrepancies were resolved. Medications at Discharge Home Medications Control 1 tab PO DAILY 02/10/16 escitalopram oxalate 10 mg tablet 10 mg PO DAILY 02/10/16 hyoscyamine sulfate 0.375 mg tablet,extended release,12 hr 0.375 mg PO BID PRN Not Specified 02/10/16 topiramate 50 mg tablet 50 mg PO BID 02/10/16 acetaminophen 500 mg tablet 500 mg PO Q6H PRN PRN Pain Score 1-10 #0 tabs 09/28/23
--- NOTE | 2023-09-28 14:48 | CASEMGMT ---
Social Work As per admitting property technician, pt does not have LW/POA and declined further information. KATELYN Reynolds
[2023-09-28 15:06] VITALS: BP 118/98; PULSE 94; RESP 14; TEMP 36.1; O2SAT 98
[2023-09-28 16:23] VITALS: BP 119/100; PULSE 98; RESP 18; TEMP 35.9; O2SAT 99
== END 2023-09-28 17:12 | disposition home or self-care (01) | DRG 398 ==
LOC: ED 07:14 → PCU 07:35
PROVIDERS: Surgery; Admitting Provider Surgery; Emergency Provider Emergency Medicine; PCP Internal Medicine; Visit Provider Surgery
PROC: 0DTJ4ZZ Resection of Appendix, Percutaneous Endoscopic Approach (ICD-10-PCS; CPT 44970; principal; 2023-09-22 12:45)
DX: K35.211 Acute appendicitis with generalized peritonitis, with perforation and abscess (principal); R18.8 Other ascites; K56.7 Ileus, unspecified; Z86.69 Personal history of other diseases of the nervous system and sense organs
CPT/HCPCS: 36415; 74018; 74176; 74177; 80048; 80076; 81001; 81025; 83735; 84100; 85025; 87070; 87075; 87077; 87086; 87088; 87186; 87205; 88304; 94668; 99252; 99283; Q9967; A4216; G0463; J2405

== ENCOUNTER → 2023-11-09 | Outpatient (CLI) | payer BC, SELFPAY ==
--- NOTE | 2023-11-09 13:16 | RAD_ITS ---
STUDY: X-RAY CHEST REASON FOR EXAM: Female, 47 years old. cough TECHNIQUE: PA and lateral views of the chest. COMPARISON: 02/10/2016 FINDINGS: The lungs are clear and expanded. Small right pleural effusion. Normal size heart. Normal mediastinum and iqra. Normal visualized pulmonary arteries. Normal visualized aortic arch and descending thoracic aorta. Normal visualized thoracic spine. Normal visualized ribs, clavicles, and shoulders. There is no demonstrated abnormality of the visualized soft tissue structures of the upper abdomen. RAD/Chest PA and Lateral IMPRESSION: Small right pleural effusion. Electronically Signed: Zach Sharp MD at 15:13 EDT ,
== END | disposition home or self-care (01) ==
LOC: RAD 13:12
PROVIDERS: PCP Internal Medicine; Referring Provider Surgery; Visit Provider Surgery
DX: R05.9 Cough, unspecified (principal)
CPT/HCPCS: 71046

== ENCOUNTER 2023-11-16 20:30 | Emergency (ER) | payer BC, SELFPAY ==
[2023-11-16 20:30] VITALS: BP 131/95; PULSE 94; RESP 16; TEMP 36.3; O2SAT 97; BMI 32.4
--- NOTE | 2023-11-16 20:58 | CT_ITS ---
EXAM: CT ABDOMEN AND PELVIS WITH INTRAVENOUS CONTRAST CLINICAL INDICATION: abdominal pain TECHNIQUE: Helically acquired images were obtained of the abdomen and pelvis with intravenous contrast. This CT exam was performed using one or more of the following dose reduction techniques: automated exposure control, adjustment of the mA and/or kV according to patient size, and/or use of iterative reconstruction technique. CONTRAST: IV 100mL Isovue-300 RADIATION DOSE: CTDIvol = 15.10 mGy, DLP = 910.03 mGy-cm. COMPARISON: September 26, 2023. FINDINGS: LOWER THORAX: There is moderate right pleural effusion, there was only slight bilateral effusion on the prior exam. Trace left pleural effusion. Mild dependent consolidation at the posterior right lung base. No cardiomegaly. ABDOMEN: LIVER: Unremarkable. Homogeneous. No focal mass. GALLBLADDER AND BILE DUCTS: Partially contracted gallbladder. No calcified gallstones. No gallbladder distention or wall edema. No intra- or extrahepatic biliary ductal dilation. PANCREAS: Unremarkable. No focal cystic or solid mass. SPLEEN: Unremarkable. Normal size without focal cystic or solid mass. ADRENALS: Unremarkable. No nodules. KIDNEYS AND URETERS: Unremarkable. Normal renal size and position. No hydronephrosis. STOMACH AND BOWEL: Unremarkable. No stomach or bowel distention. No focal inflammatory change. PELVIS: APPENDIX: Postoperative change of the tip of the cecum, consistent with prior appendectomy. BLADDER: Unremarkable. REPRODUCTIVE: Unremarkable as visualized. No mass. ABDOMEN and PELVIS: INTRAPERITONEAL SPACE: Mild intrapelvic fluid, similar to prior exam. No free air. BONES/JOINTS: Unremarkable. No suspicious lytic or blastic abnormality. SOFT TISSUES: Unremarkable. No discrete abdominal or pelvic wall hernia. VASCULATURE: Unremarkable. Abdominal aorta is non-dilated. LYMPH NODES: Mild fluid and gas in the stomach. Mildly prominent fluid in multiple small bowel loops but they are smaller than on prior exam. Moderate stool in much of the proximal half of the colon, mild stool in the sigmoid. Mild mesenteric adenopathy root of the mesentery, similar to prior exam. CT/Abdomen/Pelvis W IV Cont ONLY IMPRESSION: 1. Right greater than left pleural effusions and mild dependent right basilar lung base consolidation. 2. Mild intrapelvic fluid. No free intraperitoneal air. 3. Appendectomy. 4. Mildly prominent fluid filled small bowel loops suggesting ileus, maximum diameter roughly 2.6 cm. Cannot completely exclude enteritis or early, [id number] distal small bowel obstruction. No evidence of high-grade obstruction. Electronically Signed: Joanne Grimes MD at 23:11 EDT ,
[2023-11-16 21:22] LABS: Bacteria 0 SEEN /hpf (None Seen); Mucous, Urine 0 SEEN /hpf (<or=2+); Red Blood Cells-Urine 0 SEEN /hpf (0-5)
[2023-11-16 21:26] LABS: Absolute Lymphocyte Count 1.55 X10^3/uL (0.83-4.51); Absolute Neutrophil Count 3.2 X10^3/uL (2.0-7.7); Basophil# 0.03 X10^3/uL; Basophil% 0.5 % (0-1); Eosinophil# 0.41 X10^3/uL; Eosinophils% 7.2 % (0-5); Hematocrit 35.3 % (37-47); Hemoglobin 11.3 g/dL (12.0-15.0); Lymphocyte # 1.55 X10^3/ul (0.83-4.51); Lymphocyte % 27.4 % (19-41); Mean Corpuscular Volume 87.4 fL (81-99); Mean Platelet Vol. 10.5 fl (6.2-12.0); Monocyte# 0.44 X10^3/uL; Monocyte% 7.8 % (0-10); NRBC Flagged by Analyzer 0 % (0-5); Neutrophil # 3.22 X10^3/uL (2.7-7.7); Neutrophil % 56.9 % (47-70); Platelet Count 262 K/mm3 (150-450); RBC Distribution Width CV 12.6 % (11.6-14.6); RBC Distribution Width SD 40.2 fl (35.1-43.9); Red Blood Count 4.04 M/mm3 (4.2-5.4); White Blood Count 5.7 K/mm3 (4.4-11.0)
[2023-11-16] MEDS: Ondansetron 4 MG/2 ML Vial IV (21:38)
[2023-11-16] MEDS: Morphine 4 MG/ML Syringe IV (21:38)
[2023-11-16 21:39] LABS: Color, Urine Yellow (Yellow); Glucose, Dipstick Normal (Normal); Ketone-Dipstick Negative (Negative); Leukocyte Esterase-Dipstick 25 /ul (Negative); Nitrite-Dipstick Negative (Negative); Occult Blood-Urine 10 /ul (Negative); Protein-Dipstick 15 mg/dl (Negative); Specific Gravity, Urine 1.015 (1.002-1.030); Urine Bilirubin Dipstick Negative (Negative); Urine Clarity Clear (Clear); Urine Urobilinogen 1 mg/dl (Normal)
[2023-11-16 21:46] LABS: ALB/GLOB Ratio 0.8 RATIO (0.9-2.4); AST(SGOT) 15 U/L (15-37); Alanine Aminotransfer ALT/SGPT 17 U/L (13-56); Albumin, Serum 3.1 g/dL (3.2-5.0); Alkaline Phosphatase 97 U/L (45-117); Anion Gap 7 (5-15); BUN 18 mg/dL (7-18); BUN/Creat Ratio 22.8 RATIO (10-20); Calcium,Total 8.4 mg/dL (8.5-10.1); Chloride 110 mmol/L (98-107); Creatinine, Serum 0.79 mg/dL (0.55-1.02); EST Glomerular Filtration Rate 82 mL/min (>60); Est Glom Filt Rate - Afr Amer 99 mL/min (>60); Estimated Creatinine Clearance 94.62 ml/min; Globulin 3.9 g/dL (2.2-4.2); Glucose 106 mg/dL (74-106); Lipase 43 U/L (13-75); Potassium 3.6 mmol/L (3.5-5.1); Sodium Level 139 mmol/L (136-145)
[2023-11-16 21:47] LABS: Squamous Epithelial Cells - UA 5-10 SEEN /hpf (5-10); Transitional Epithelial - Ur 0 SEEN /hpf (0-5); White Blood Cells 0-5 SEEN /hpf (0-5)
[2023-11-16 22:30] VITALS: BP 112/77; PULSE 80; RESP 16; O2SAT 98
--- NOTE | 2023-11-16 22:33 | ED.VIS.GI ---
HPI HPI - GI History of Present Illness Chief Complaint: Abd Pain Narrative Narrative: 47-year-old female presenting with abdominal pain. She states she has had it since she had a ruptured appendicitis. She has had pain since then. She follows with Dr. Miller. He is only did the surgery. Denies any fevers or chills. Denies nausea or vomiting. She is making normal urine and stool. PFSH PFS Medical History Cough IBS (irritable bowel syndrome) Migraine Epilepsy Home Medications ?Medication ?Instructions ?Recorded ?Last Taken ?Type escitalopram oxalate 10 mg tablet 10 mg PO DAILY 02/10/16 Unknown History hyoscyamine sulfate 0.375 mg 0.375 mg PO BID PRN Not Specified 02/10/16 Unknown History tablet,extended release,12 hr topiramate 50 mg tablet 50 mg PO BID 02/10/16 Unknown History doxepin 25 mg capsule 25 mg PO QHS 11/16/23 Unknown History drospirenone 3 mg-ethinyl 1 tab PO DAILY 11/16/23 Unknown History estradiol 0.02 mg tablet (Vestura (28)) dupilumab 300 mg/2 mL subcutaneous 300 mg subcut .COMPLEX eczema 11/16/23 Unknown History pen injector (Dupixent) naproxen 500 mg tablet 500 mg PO BID PRN PRN pain 11/16/23 Unknown History Allergy/AdvReac Type Severity Reaction Status Date / Time No Known Allergies Allergy Verified 11/09/23 12:35 Surgical History S/P laparoscopic appendectomy Social History Smoking Status: Never smoker ROS ROS ED Constitutional Constitutional ED: Denies chills, fever(s) or sweats Eyes Eyes: Denies blurry vision or change in vision ENT ENT ED: Denies ear pain or sore throat Cardiovascular Cardiovascular: Denies chest pain, palpitations or racing heartbeat Respiratory/Chest Respiratory/Chest: Denies cough, dyspnea or sputum Gastrointestinal Gastrointestinal: Reports abdominal pain; Denies constipation, diarrhea, nausea or vomiting Genitourinary Genitourinary ED: Denies dysuria, hematuria or urinary frequency Musculoskeletal Musculoskeletal: Denies arthralgias, myalgias or neck pain Integumentary Denies abscess, Abrasions or rash Neurologic Neurologic: Denies headache(s), paresthesias or weakness Psychiatric Psychiatric: Denies anxiety, depression, suicidal ideation or suicidal thoughts Endocrine Endocrinology: Denies polydipsia or polyuria EXAM Physical Exam Const Vital Signs: 11/16/23 20:30 11/16/23 22:30 Temperature 97.3 F L Temperature Source Temporal Pulse Rate 94 80 Respiratory Rate 16 16 Blood Pressure 131/95 H 112/77 Blood Pressure Mean 107 88 Pulse Ox 97 98 Oxygen Delivery Method Room Air Room Air General Appearance ED: Negative for pallor HEENT Reports normocephalic, head/scalp atraumatic and moist mucous membranes Eyes PERRL and EOMs intact bilaterally Neck no lymphadenopathy and supple Resp normal respiratory effort Cardio regular rate and regular rhythm GI GI Narrative: Mild diffuse tenderness. Auscultation: normoactive bowel sounds Palpation: soft Narrative: Deferred Extremity normal to inspection Neuro oriented x3 and CN's II-XII intact bilaterally Sensorium / Orientation: alert Motor Exam: strength 5/5 throughout Psych mental status grossly normal Attitude: No agitated Skin no rashes or lesions noted and no wounds General Skin Exam: Negative for jaundice or pallor MDM MDM MDM Narrative Medical decision making narrative: Patient presenting with abdominal pain. Is a couple months ago that she had-itis. Denies fevers or chills. Denies nausea or vomiting. She make normal urine and stool. She has been following up with Dr. Miller. Patient presenting with right flank pain. Differential includes colitis, diverticulitis, gastritis, pancreatitis, acute cholecystitis, constipation, postoperative infection, UTI, pyelonephritis, calculi, ureteral calculi, obstruction, malignancy, dehydration, electrolyte abnormalities. CBC will be obtained to assess white blood cell count, hemoglobin, platelets. CMP to assess renal function, electrolytes, liver function, glucose. Lipase to assess for pancreatitis. Urinalysis to assess for UTI. Patient medicated with morphine and Zofran. CBC shows normal white blood cell count of 5.7. Hemoglobin 11.3. Platelets are normal at 262. Renal function is within normal limits. LFTs are normal. Lipase negative. Urinalysis negative for infection. CT of the abdomen pelvis shows pleural effusions which were previously seen. The right is greater than the left. The CT scan was interpreted by the radiologist as fluid-filled sacs suggesting ileus and cannot exclude enteritis or early small bowel obstruction. Discussed with Dr. Miller he is on-call and reviewed the CT and disagrees. He did recommend that she get incentive spirometer for the pleural effusions and he will follow-up with her as an outpatient basis. I also recommended she follow-up with her PCP. Return precautions were discussed. Impression: 1. Pleural effusions 2. Abdominal pain Lab Data Attestation: I reviewed the patient's lab results. Labs: Laboratory Results - last 24 hr 11/16/23 11/16/23 21:10 21:17 WBC 5.7 RBC 4.04 L Hgb 11.3 L Hct 35.3 L MCV 87.4 MCH 28.0 MCHC 32.0 RDW Std Deviation 40.2 RDW Coeff of Quinton 12.6 Plt Count 262 MPV 10.5 Immature Gran % (Auto) 0.200 Neut % (Auto) 56.9 Lymph % (Auto) 27.4 Mccormick % (Auto) 7.8 Eos % (Auto) 7.2 H Baso % (Auto) 0.5 Absolute Neuts (auto) 3.2 Absolute Lymphs (auto) 1.55 Nucleated RBC % 0 Sodium 139 Potassium 3.6 Chloride 110 H Carbon Dioxide 22.0 Anion Gap 7 BUN 18 Creatinine 0.79 Estim Creat Clear Calc 94.62 Est GFR (MDRD) Af Amer 99 Est GFR (MDRD) Non-Af 82 BUN/Creatinine Ratio 22.8 H Glucose 106 Calcium 8.4 L Total Bilirubin 0.30 AST 15 ALT 17 Alkaline Phosphatase 97 Total Protein 7.0 Albumin 3.1 L Globulin 3.9 Albumin/Globulin Ratio 0.8 L Lipase 43 Urine Color Yellow Urine Clarity Clear Urine pH 6.0 Ur Specific Williams 1.015 Urine Protein 15 H Urine Glucose (UA) Normal Urine Ketones Negative Urine Occult Blood 10 H Urine Nitrite Negative Urine Bilirubin Negative Urine Urobilinogen 1 H Ur Leukocyte Esterase 25 H Urine RBC 0 SEEN Urine WBC 0-5 SEEN Ur Squamous Epith Cells 5-10 SEEN Ur Transition Epith Cell 0 SEEN Urine Bacteria 0 SEEN Urine Mucus 0 SEEN Radiography Diagnostic Testing: Clinical Impression(s) from Imaging Studies Abdomen/Pelvis CT 11/16/23 20:58 IMPRESSION: 1. Right greater than left pleural effusions and mild dependent right basilar lung base consolidation. 2. Mild intrapelvic fluid. No free intraperitoneal air. 3. Appendectomy. 4. Mildly prominent fluid filled small bowel loops suggesting ileus, maximum diameter roughly 2.6 cm. Cannot completely exclude enteritis or early, [id number] distal small bowel obstruction. No evidence of high-grade obstruction. Electronically Signed: Joanne Grimes MD at 23:11 EDT , Discharge Plan Triage Chief Complaint: Abd Pain ED Provider: Judson Gupta Dx/Rx/DC Orders Instructions: ED Abdominal Pain Unkn Cause Fem, ED Pleural Effusion Prescriptions: No Action hyoscyamine sulfate 0.375 MG tablet extended release 12 hr 0.375 mg PO BID PRN (Reason: Not Specified) Patient Comments: IBS escitalopram oxalate 10 MG tablet 10 mg PO DAILY topiramate 50 MG tablet 50 mg PO BID Patient Comments: SEIZURES doxepin 25 mg capsule 25 mg PO QHS drospirenone-ethinyl estradiol [Vestura (28)] 3-0.02 mg tablet 1 tab PO DAILY Dupixent Pen 300 mg/2 mL pen injector 300 mg subcut .COMPLEX Rx Instructions: 300 mg subcutaneously every 6 weeks; naproxen 500 mg tablet 500 mg PO BID PRN PRN (Reason: pain) Primary Care Provider: Li Beard Referrals: Li Beard MD [Primary Care Provider] - Print Language: Bruneian Disposition Disposition: Home, Self Care
[2023-11-16 23:45] VITALS: BP 115/70; PULSE 68; RESP 18; TEMP 36.6; O2SAT 100
== END 2023-11-16 23:50 | disposition home or self-care (01) ==
PROVIDERS: Emergency Provider Student in an Organized Health Care Education/Training Program; PCP Internal Medicine; Visit Provider Student in an Organized Health Care Education/Training Program
DX: J90 Pleural effusion, not elsewhere classified (principal); R10.9 Unspecified abdominal pain
CPT/HCPCS: 74177; 80053; 81001; 83690; 85025; 96374; 96375; 99282; Q9967; A4216; J2405